=== PATIENT | male | born 1955 | race African-American/Black ===

== ENCOUNTER → 2017-02-06 | Day surgery (SDC) | payer OTHER ==
[~2017-02-06] MED LIST: DIPRIVAN VIAL 20 ML ONE; NS 1000 ML 1,000 ML ONE
[2017-02-06 09:44] VITALS: BP 138/93
== END ==
LOC: SURG1 06:38
PROVIDERS: ATTEND Student in an Organized Health Care Education/Training Program
PROC: 0DJD8ZZ Inspection of Lower Intestinal Tract, Via Natural or Artificial Opening Endoscopic (ICD-10-PCS; principal; 2017-02-06 09:30)
DX: Z12.11 Encounter for screening for malignant neoplasm of colon (principal); Q27.33 Arteriovenous malformation of digestive system vessel; K64.8 Other hemorrhoids
CPT/HCPCS: A4217; J3490

== ENCOUNTER 2021-11-24 11:48 | Inpatient (IN) ==
--- NOTE | 2021-11-24 11:58 | DR.AMS ---
HPI Time Seen Time Seen by Provider: 11/24/21 11:57 HPI Comment HPI Comment: PATIENT IS 66YR OLD MALE IN ER WITH AMS. EMS CALLED TO HIS HOME FOR FLU LIKE SYMPTOMS. UPON ARRIVEL, HE WAS FOUNG TO HAVE AMS, FVER AND ELEVATED GLUCOSE. Complaint Cheif Complaint Doctors Comments: AMS. Reviewed Nurses Notes Reviewed: Yes PMH PMH Past Medical History: Diabetes and Hypertension Past Surgical History: Yes Surgical History: Ortho Surgery Family History Family Medical History: Diabetes Mellitus, [place], Coronary Artery Disease and Hypertension Social History Do you use any recreational Drugs:: No ROS Review of Systems Constitutional: No Symptoms Reported and See HPI Eyes: No Symptoms Reported and See HPI ENTM: No Symptoms Reported and See HPI Respiratoy: No Symptoms Reported and See HPI Cardiovascular: No Symptoms Reported and See HPI Gastrointestinal/Abdominal: No Symptoms Reported and See HPI Genitourinary: No Symptoms Reported and See HPI Neurological: No Symptoms Reported and See HPI Musculoskeletal: No Symptoms Reported and See HPI Integumentary: No Symptoms Reported and See HPI Hematologic/Lymphatic: No Symptoms Reported and See HPI Endocrine: No Symptoms Reported and See HPI Psychiatric: No Symptoms Reported and See HPI All Other Systems: Reviewed and Negative PE Vitals Vital Signs: Temp Pulse Resp BP BP Pulse Ox 11/24/21 13:30 128 H 29 H 154/92 94 L 11/24/21 13:15 129 H 29 H 93 L 11/24/21 13:05 128 H 27 H 142/96 94 L 11/24/21 13:00 128 H 28 H 94 L 11/24/21 12:45 133 H 30 H 93 L 11/24/21 12:30 130 H 28 H 167/85 94 L 11/24/21 12:19 123 H 94 L 11/24/21 12:01 129 H 29 H 93 L 11/24/21 12:00 163/91 11/24/21 11:49 99.7 F H 130 H 20 164/91 92 L 11/13/21 11:37 135/82 01/23/21 03:30 149/86 General Limitations: Language Barrier General Appearance: Alert Head Head Exam: Normal Inspection Eyes Eye exam: Normal Appearance ENT ENT Exam: Normal Exam External Ear Exam: Normal External Inspection Nose Exam: Normal Nose Exam Mouth Exam: Normal Inspection Throat Exam: Normal Inspection Neck Neck Exam: Normal Inspection Chest Chest Inspection: Normal Inspection Respiratory Respiratory Exam: Normal Lung Sounds Bilat Cardiovascular Cardiovascular Exam: Regular Rate and Normal Rhythm Abdominal Exam Abdominal Exam: Normal Inspection, Normal Bowel Sounds and Soft Extremities Extremities Exam: Normal Inspection Back Back Exam: Normal Inspection Neurological Neurological Exam: Alert and Oriented X3 Psychological Psychiatric Exam: Normal Affect and Normal Mood Skin Skin Exam: Warm, Dry, Intact and Normal Color MDM Differential Diagnosis Metabolic: Dehydration, Hypercalcemia, Hypernatremia, Hypoglycemia and Hyponatremia Structural: CVA and Mass Lesion Infectious: Sepsis and UTI (PNEUMONIA, DKA.) COURSE Treatment Treatment: SEE ORDERS. Consultation Consultation Comments: DISCUSSED PATIENT WITH DR. COON. HE WILL ADMIT PATIENT. Education/Counseling Education/Counseling: Patient and Family Educated On: Diagnosis ROR Labs Reviewed Laboratory Results Reviewed?: Yes Result Diagrams: 11/24/21 12:36 11/24/21 12:36 Laboratory: WBC 1.6 X10^3/uL (3.6-10.0) L* 11/24/21 12:36 RBC 5.80 X10^6/uL (4.7-6.0) 11/24/21 12:36 Hgb 15.8 g/dL (13.5-18.0) 11/24/21 12:36 Hct 46.7 % (42.0-54.0) 11/24/21 12:36 MCV 80.6 fL (80.0-100.0) 11/24/21 12:36 MCH 27.2 pg (27.0-34.0) 11/24/21 12:36 MCHC 33.8 g/dL (33.0-35.0) 11/24/21 12:36 RDW 14.2 % (11.6-16.5) 11/24/21 12:36 Plt Count 111 X10^3/uL (150.0-450.0) L 11/24/21 12:36 Plt Count Comment Decreased (ADEQUATE) 11/24/21 12:36 MPV 9.3 fL (7.4-11.0) 11/24/21 12:36 Neut % (Auto) 79.0 % (42.0-75.0) H 11/24/21 12:36 Lymph % (Auto) 17.5 % (21.0-51.0) L 11/24/21 12:36 [place] % (Auto) 3.2 % (0.0-13.0) 11/24/21 12:36 Eos % (Auto) 0.1 % (0.9-2.9) L 11/24/21 12:36 Baso % (Auto) 0.2 % (0.2-1.0) 11/24/21 12:36 Neut # (Auto) 1.3 x10^3/uL (2.2-4.8) L 11/24/21 12:36 Lymph # (Auto) 0.3 X10^3/uL (1.3-2.9) L 11/24/21 12:36 [place] # (Auto) 0.1 x10^3/uL (0.3-0.8) L 11/24/21 12:36 Eos # (Auto) 0.0 x10^3/uL (0.0-0.2) 11/24/21 12:36 Baso # (Auto) 0.0 X10^3/uL (0.0-0.1) 11/24/21 12:36 Absolute Nucleated RBC 0.3 /100WBC 11/24/21 12:36 Total Counted 50 11/24/21 12:36 Neutrophils % (Manual) 66 % (39-76) 11/24/21 12:36 Lymphocytes % (Manual) 26 % (13-43) 11/24/21 12:36 Monocytes % (Manual) 8 % (4-9) 11/24/21 12:36 Plt Morphology Comment Normal (NORMAL) 11/24/21 12:36 RBC Morphology Normal (NORMAL) 11/24/21 12:36 Sodium 138 mmol/L (136-145) 11/24/21 12:36 Corrected Sodium 145 mmol/L (136-145) 11/24/21 12:36 Potassium 3.9 mmol/L (3.5-5.1) 11/24/21 12:36 Chloride 99 mmol/L (98-107) 11/24/21 12:36 Carbon Dioxide 21.9 mmol/L (21-32) 11/24/21 12:36 BUN 20 mg/dL (7-18) H 11/24/21 12:36 Creatinine 1.75 mg/dL (0.70-1.30) H 11/24/21 12:36 Est GFR (MDRD) Af Amer 50 (>60) L 11/24/21 12:36 Est GFR (MDRD) Non-Af 42 (>60) L 11/24/21 12:36 Glucose 378 mg/dL (65-99) H 11/24/21 12:36 Lactic Acid 5.3 mmol/L (0.4-2.0) H 11/24/21 12:36 Calcium 9.5 mg/dL (8.5-10.1) 11/24/21 12:36 Corrected Calcium 10.8 mg/dL (8.5-10.1) H 11/24/21 12:36 Total Bilirubin 1.40 mg/dL (0.2-1.0) H 11/24/21 12:36 AST 24 Units/L (15-37) 11/24/21 12:36 ALT 18 Units/L (12-78) 11/24/21 12:36 Alkaline Phosphatase 51 Units/L (46-116) 11/24/21 12:36 Creatine Kinase 121 Units/L (39-308) 11/24/21 12:36 CK-MB (CK-2) < 1.0 ng/mL (0-4.0) 11/24/21 12:36 CK/CKMB % Calc 0.8 % (<4) 11/24/21 12:36 Troponin I < 0.02 ng/mL (0-1.5) 11/24/21 12:36 B-Natriuretic Peptide 118 pg/mL (0-79) H 11/24/21 12:36 Total Protein 7.4 g/dL (6.4-8.2) 11/24/21 12:36 Albumin 2.4 g/dL (3.4-5.0) L 11/24/21 12:36 Globulin 5.0 g/dL (2.5-4.5) H 11/24/21 12:36 Albumin/Globulin Ratio 0.5 Ratio (1.1-2.1) L 11/24/21 12:36 Acetone, Semi-Quant Negative (NEGATIVE) 11/24/21 12:36 SARS-CoV-2 (PCR) Negative (NEGATIVE) 11/24/21 12:45 Influenza Type A (PCR) Positive (NEGATIVE) A 11/24/21 12:45 Influenza Type B (PCR) Negative (NEGATIVE) 11/24/21 12:45 RSV (PCR) Negative (NEGATIVE) 11/24/21 12:45 XRAY XRAY Interpreted by: Radiologist (REPORTS NOTED AND DISCUSSED WITH PATIENT.) and Self EKG [place]: Normal Rhythm: ST Block: RBBB Hypertrophy: None ST: Nonsp Opioid Opioid Risk Tool Age (Cristhian box if 16-45): No History of Preadolescent Sexual Abuse: No Total: 0 Total Score Risk Category: Low Risk Copyright: Jonathan MCCARTNEY predicting aberrant behaviors Diagnosis Discharge Problem: Acute dehydration, Acute hyperglycemia, Acidosis, lactic Pneumonia Qualifiers: Pneumonia type: due to unspecified organism Laterality: bilateral Lung location: lower lobe of lung Qualified Code(s): J18.9 - Pneumonia, unspecified organism Altered mental state Qualifiers: Altered mental status type: transient alteration of awareness Qualified Code(s): R40.4 - Transient alteration of awareness Leukopenia Qualifiers: Leukopenia type: unspecified Qualified Code(s): D72.819 - Decreased white blood cell count, unspecified Instructions Forms: Precautions for COVID19 [facility] Social Distancing
[2021-11-24 12:03] VITALS: BMI 24.4
--- NOTE | 2021-11-24 12:33 | CT ---
HISTORYAMD, ELEVATED BLOOD SUGARSTUDYBRAIN W/O CONCOMPARISONNoneTECHNIQUEMultiple axial CT images of the head without contrast. Dose reduction techniques including Automated Exposure Control (AEC) and adjustment of mA and kV were utilized.FINDINGSNo visible intracranial hemorrhage or overt acute infarct. No ventriculomegaly or midline shift. Basal cisterns appear patent. Globes intact. Included paranasal sinuses and mastoid air cells appear aerated. Skull base and calvarium appear intact.IMPRESSIONNo acute intracranial finding.Electronically signed by: Ludwig Mariano (Nov 24, 2021 12:31:39)
[2021-11-24] MEDS ORDERED: NS 1,000 ML IV 1,000 ML ONE (12:37)
--- NOTE | 2021-11-24 12:51 | RAD ---
HISTORYFEVERSTUDYCHEST, 1 [id number]/24/2021FINDINGSThe cardiomediastinal silhouette is stable. Patchy bilateral airspace opacities. No pneumothorax. The bony thorax appears intact.IMPRESSIONBilateral airspace opacities concerning for pneumonia. Recommend follow-up to resolution.Electronically signed by: KATHRYN TORRES (Nov 24, 2021 12:49:28)
[2021-11-24 12:52] LABS: BASOPHILS % (AUTO) 0.2 % (0.2-1.0); EOSINOPHILS % (AUTO) 0.1 % (0.9-2.9); HEMATOCRIT 46.7 % (42.0-54.0); HEMOGLOBIN 15.8 g/dL (13.5-18.0); LYMPHOCYTES # (AUTO) 0.3 X10^3/uL (1.3-2.9); LYMPHOCYTES % (AUTO) 17.5 % (21.0-51.0); MEAN CORPUSCULAR HEMOGLOBIN 27.2 pg (27.0-34.0); MEAN CORPUSCULAR HGB CONC 33.8 g/dL (33.0-35.0); MEAN CORPUSCULAR VOLUME 80.6 fL (80.0-100.0); MEAN PLATELET VOLUME 9.3 fL (7.4-11.0); MONOCYTES # (AUTO) 0.1 x10^3/uL (0.3-0.8); MONOCYTES % (AUTO) 3.2 % (0.0-13.0); NEUTROPHILS # (AUTO) 1.3 x10^3/uL (2.2-4.8); PLATELET COUNT 111 X10^3/uL (150.0-450.0); RED CELL DISTRIBUTION WIDTH 14.2 % (11.6-16.5)
[2021-11-24] MEDS: NS 1,000 ML IV 1,000 ML IV SCH ×2 (12:52→21:22)
[2021-11-24 12:57] LABS: WHITE BLOOD COUNT 1.6 X10^3/uL (3.6-10.0)
[2021-11-24 12:59] LABS: SERUM ACETONE NEGATIVE (NEGATIVE)
[2021-11-24 13:08] LABS: ALANINE AMINOTRANSFERASE 18 Units/L (12-78); ALBUMIN 2.4 g/dL (3.4-5.0); ALKALINE PHOSPHATASE 51 Units/L (46-116); ASPARTATE AMINO TRANSFERASE 24 Units/L (15-37); BLOOD UREA NITROGEN 20 mg/dL (7-18); CALCIUM 9.5 mg/dL (8.5-10.1); CARBON DIOXIDE 21.9 mmol/L (21-32); CHLORIDE 99 mmol/L (98-107); CKMB % 0.8 % (<4); COR CA(FOR HYPOALB) 10.8 mg/dL (8.5-10.1); COR NA(FOR HYPERGLY) 145 mmol/L (136-145); CREATINE KINASE 121 Units/L (39-308); CREATINE KINASE MB < 1.0 ng/mL (0-4.0); CREATININE 1.75 mg/dL (0.70-1.30); SODIUM 138 mmol/L (136-145); TOTAL PROTEIN 7.4 g/dL (6.4-8.2); TROPONIN I < 0.02 ng/mL (0-1.5); eGFR NON BLACK RACES 42 (>60)
[2021-11-24 13:09] LABS: LACTIC ACID 5.3 mmol/L (0.4-2.0)
[2021-11-24 13:21] LABS: PLATELET MORPHOLOGY COMMENT NORMAL (NORMAL)
[2021-11-24] MEDS ORDERED: NS 100 ML IV + SPIKE MINIBAG* 200 ML IV ONE (13:25)
[2021-11-24] MEDS ORDERED: FORTAZ or TAZICEF VIAL INJ ONE (13:25)
[2021-11-24] MEDS ORDERED: ZOSYN VIAL 3.375 GRAMS IV ONE (13:25)
[2021-11-24] MEDS: FORTAZ or TAZICEF VIAL INJ 1 G in NS 100 ML IV + SPIKE MINIBAG* 100 ML IV SCH ×2 (13:40→14:27)
[2021-11-24 13:58] LABS: BILIRUBIN,URINE NEGATIVE (NEGATIVE); BLOOD/HEMOGLOBIN,URINE 4+ (NEGATIVE); GLUCOSE, URINE 4+ (NEGATIVE); KETONES,URINE 3+ (NEGATIVE); LEUKOCYTE ESTERASE ,URINE NEGATIVE (NEGATIVE); NITRITES,URINE NEGATIVE (NEGATIVE); PROTEIN,URINE 3+ (NEGATIVE); UROBILINOGEN,URINE NORMAL (NORMAL)
[2021-11-24 14:02] LABS: APPEARANCE,URINE SLIGHTLY HAZY (CLEAR); COLOR,URINE DARK YELLOW (YELLOW)
[2021-11-24] MEDS ORDERED: NovoLIN R (or HumuLIN R) ONE (14:13)
[2021-11-24] MEDS ORDERED: NovoLIN R (or HumuLIN R) SUBCUT PRN (14:22)
[2021-11-24 14:23] LABS: AMORPHOUS SEDIMENT,UR 1+ /HPF (NEGATIVE); BACTERIA,URINE TRACE /HPF (NEGATIVE); COARSE GRANULAR CASTS,URINE MODERATE /HPF (NEGATIVE); SQUAMOUS EPITHELIAL CELL,UR FEW /HPF (NEGATIVE)
[2021-11-24 14:24] LABS: OTHER CASTS, URINE FEW /LPF (NEGATIVE)
[2021-11-24] MEDS: ZOSYN VIAL 3.375 GRAMS 3.375 G in NS 100 ML IV + SPIKE MINIBAG* 100 ML IV SCH ×2 (14:28→21:47)
[2021-11-24] MEDS: ASCORBIC ACID INJ MULTI-DOSE VIAL 1,500 MG in NS 100 ML IV 100 ML IV SCH ×2 (15:00→21:22)
[2021-11-24] MEDS ORDERED: TOPROL XL PO ONE (17:59)
[2021-11-24] MEDS: TOPROL XL PO SCH (18:22)
[2021-11-24 18:55] LABS: CKMB % 0.8 % (<4); CREATINE KINASE 125 Units/L (39-308); CREATINE KINASE MB < 1.0 ng/mL (0-4.0); TROPONIN I < 0.02 ng/mL (0-1.5)
[2021-11-24] MEDS ORDERED: SNACK - Diabetic Appropriate PO SCH (20:00)
[2021-11-24] MEDS: LOVENOX INJ 30 MG SYR SC SCH (21:00)
[2021-11-24] MEDS: PROVENTIL NEB TX 0.083% 2.5MG/ 3ML NEB SCH (21:25)
[2021-11-24] MEDS: PULMICORT NEB TX 0.5 MG NEB SCH (21:25)
[2021-11-24] MEDS: SNACK - Diabetic Appropriate PO SCH (21:45)
[2021-11-24] MEDS: PEPCID TAB 40 MG PO SCH (21:48)
[2021-11-24] MEDS: ZINC SULFATE PO SCH (21:48)
[2021-11-24] MEDS: NovoLIN R (or HumuLIN R) SUBCUT PRN ×2 (22:15→22:25)
[2021-11-25 01:12] LABS: CREATINE KINASE 101 Units/L (39-308); CREATINE KINASE MB < 1.0 ng/mL (0-4.0); TROPONIN I < 0.02 ng/mL (0-1.5)
[2021-11-25] MEDS: ASCORBIC ACID INJ MULTI-DOSE VIAL 1,500 MG in NS 100 ML IV 100 ML IV SCH ×4 (02:54→21:37)
[2021-11-25] MEDS: NS 1,000 ML IV 1,000 ML IV SCH ×4 (03:40→21:39)
[2021-11-25 05:12] LABS: BASOPHILS % (AUTO) 0.1 % (0.2-1.0); EOSINOPHILS % (AUTO) 0.1 % (0.9-2.9); HEMATOCRIT 39.5 % (42.0-54.0); HEMOGLOBIN 13.5 g/dL (13.5-18.0); LYMPHOCYTES # (AUTO) 0.5 X10^3/uL (1.3-2.9); LYMPHOCYTES % (AUTO) 12.4 % (21.0-51.0); MEAN CORPUSCULAR HEMOGLOBIN 27.1 pg (27.0-34.0); MEAN CORPUSCULAR HGB CONC 34.2 g/dL (33.0-35.0); MEAN CORPUSCULAR VOLUME 79.1 fL (80.0-100.0); MEAN PLATELET VOLUME 9.5 fL (7.4-11.0); MONOCYTES # (AUTO) 0.1 x10^3/uL (0.3-0.8); MONOCYTES % (AUTO) 2.6 % (0.0-13.0); NEUTROPHILS # (AUTO) 3.4 x10^3/uL (2.2-4.8); NEUTROPHILS % (AUTO) 84.8 % (42.0-75.0); PLATELET COUNT 106 X10^3/uL (150.0-450.0); RED CELL DISTRIBUTION WIDTH 13.8 % (11.6-16.5)
[2021-11-25 05:21] LABS: LACTIC ACID 1.4 mmol/L (0.4-2.0)
[2021-11-25] MEDS: ZOSYN VIAL 3.375 GRAMS 3.375 G in NS 100 ML IV + SPIKE MINIBAG* 100 ML IV SCH ×3 (05:22→21:37)
[2021-11-25 05:33] LABS: ALANINE AMINOTRANSFERASE 18 Units/L (12-78); ALBUMIN 1.8 g/dL (3.4-5.0); ALKALINE PHOSPHATASE 46 Units/L (46-116); ASPARTATE AMINO TRANSFERASE 26 Units/L (15-37); BLOOD UREA NITROGEN 27 mg/dL (7-18); CALCIUM 8.8 mg/dL (8.5-10.1); CARBON DIOXIDE 27.6 mmol/L (21-32); CHLORIDE 105 mmol/L (98-107); COR CA(FOR HYPOALB) 10.6 mg/dL (8.5-10.1); COR NA(FOR HYPERGLY) 142 mmol/L (136-145); CREATININE 1.37 mg/dL (0.70-1.30); SODIUM 142 mmol/L (136-145); TOTAL PROTEIN 6.1 g/dL (6.4-8.2); eGFR NON BLACK RACES 55 (>60)
[2021-11-25 05:43] LABS: PLATELET MORPHOLOGY COMMENT NORMAL (NORMAL)
[2021-11-25] MEDS ORDERED: KLOR-CON PO PRN (06:56)
[2021-11-25] MEDS ORDERED: K-DUR TAB 20 MEQ PO PRN (06:56)
[2021-11-25] MEDS ORDERED: POTASSIUM CHL 40 MEQ/NS 0.45% 500 ML IV PRN (06:56)
[2021-11-25] MEDS ORDERED: POTASSIUM CHL 60 MEQ/NS 0.45% 500 ML IV PRN (06:56)
[2021-11-25] MEDS ORDERED: K-RIDER 10 MEQ/NS 100 ML 10 MEQ/100 ML BAG IV PRN (06:56)
[2021-11-25] MEDS ORDERED: MICRO K EXTEN CAP 10 MEQ PO PRN (06:56)
[2021-11-25] MEDS ORDERED: POTASSIUM CHLORIDE LIQ 20 MEQ UDC PO PRN (06:56)
[2021-11-25] MEDS ORDERED: MAGNESIUM SULFATE 1 GRAM/100 mL PREMIX 1 G/100 ML BAG IV PRN (06:56)
--- NOTE | 2021-11-25 07:59 | RAD ---
HISTORYFLU A+ HTN, DM SX: ORTHO, EYESSTUDYCHEST, 1 VIEWCOMPARISONAP chest November 24, 2021.FINDINGSThe trachea is midline. The cardiac silhouette is unremarkable. There are bilateral right greater than left pulmonary infiltrates unchanged from yesterday's film. Small effusion is seen in the left lung base. The bony thorax is unremarkable.IMPRESSIONBilateral right greater than left airspace disease consistent with pneumonia with probable small effusion left lung base. Findings are unchanged from yesterday's exam.Electronically signed by: SOURAV PERALTA (Nov 25, 2021 07:58:28)
[2021-11-25] MEDS ORDERED: PROVENTIL NEB TX 0.083% 2.5MG/ 3ML NEB PRN (08:13)
[2021-11-25] MEDS: TRICOR TAB 160 MG PO SCH (08:44)
[2021-11-25] MEDS: TOPROL XL PO SCH (08:44)
[2021-11-25] MEDS: ZINC SULFATE PO SCH ×2 (08:45→21:38)
[2021-11-25] MEDS ORDERED: VITAMIN D (1.25MG) PO SCH (09:00)
[2021-11-25] MEDS ORDERED: VITAMIN A PO SCH (09:00)
[2021-11-25] MEDS: PROVENTIL NEB TX 0.083% 2.5MG/ 3ML NEB SCH ×2 (09:05→20:30)
[2021-11-25] MEDS: PULMICORT NEB TX 0.5 MG NEB SCH ×2 (09:05→20:30)
[2021-11-25] MEDS: LOVENOX INJ 30 MG SYR SC SCH ×2 (09:35→21:39)
--- NOTE | 2021-11-25 09:56 | DR.H&P ---
H&P - History & Physical for Day of: H&P Date: 11/24/21 - Chief Complaint Chief Complaint: COUGH, FEVER, DECREASED APPETITE, WEAKNESS, AMS - History of Present Illness History of Present Illness: IS A 66 YEAR OLD PATIENT OF . HE PRESENTED TO THE ER WITH REPORTS OF A NON-PRODUCTIVE COUGH, FEVER, DECREASED APPETITE, WEAKNESS, AND ALTERED MENTAL STATUS. FAMILY MEMBER REPORTS THAT HIS SYMPTOMS STARTED ON 11/21/21 AND HAVE PROGRESSIVELY GOTTEN WORSE. ON EXAMINATION, PATIENT IS LETHARGIC, BUT IS ABLE TO ANSWER QUESTIONS APPROPRIATELY AND MOVES ON COMMAND. AUSCULTATION OF LUNG HARDIN, PATIENT WAS NOTED TO HAVE RHONCHI THROUGHOUT BILATERAL LUNG HARDIN. HIS PMH INCLUDES: CAD, HTN, GERD, CHRONIC BACK PAIN, DM II. ON ARRIVAL TO THE ER, HIS VITALS WERE: 99.7-130-20-92%-164/91. LABS WERE OBTAINED. ABNORMAL LAB VALUES INCLUDED THE FOLLOWING: WBC 1.6, PLT COUNT 111, BUN 20, CREATININE 1.75, GLUCOSE 378, LACTIC ACID 5.3, TOTAL BILI 1.40, BNP 118, CORRECTED CALCIUM 10.8, ALBUMIN 2.4, GLOBULIN 5.0. CARDIAC ENZYMES WERE WITHIN NORMAL LIMITS. INFLUENZA A POSITIVE. COVID AND RSV ARE NEGATIVE. ACETONES NEGATIVE. A URINALYSIS WAS OBTAINED AND REVEALED: WBC 0-2, RBC 5-10, LEUKOCYTES NEGATIVE, BACTERIA TRACE. BLOOD CULTURES WERE SET UP. A BRAIN CT WAS OBTAINED AND REVEALED NO ACUTE INTRACRANIAL FINDINGS. CHEST XRAY REVEALED: Bilateral airspace opacities concerning for pneumonia. Recommend follow-up to resolution. EKG REVEALED: SINUS OR ECTOPIC ATRIAL TACHYCARDIA WITH HR 129. IN THE ER, HE WAS GIVEN HUMULIN R 8 UNITS SC X 1 DOSE. HE WAS ADMITTED TO THE HOSPITAL FOR FURTHER EVALUATION AND TREATMENT OF PNEUMONIA, INFLUENZA A, DEHYDRATION, HYPERGLYCEMIA, LEUKOPENIA, AND AMS. HE WAS STARTED ON NORMAL SALINE AT 125ML/HR, LEVAQUIN 500MG IV DAILY, ZOSYN 3.375G IV TID, ALBUTEROL NEB TX, PULMICORT NEB TX, LOVENOX 30MG SC BID, SOLU-MEDROL 40MG IV Q8H, TAMIFLU 75MG PO BID, PEPCID 40MG PO HS, TRICOR 160MG PO DAILY, MEGACE 40MG PO BID, TOPROL XL 50MG PO DAILY, AND IMMUNE SUPPLEMENTS. OTHERWISE, WE PLAN TO FOLLOW UP WITH AM LABS AND CHEST XRAY AND CONTINUE TO MONITOR. TIME SPENT ON CLINICAL ASSESSMENT, REVIEWING LABS AND IMAGING, DECISION MAKING, AND DOCUMENTATION GREATER THAN 75 MINUTES. - Past Medical History Past Medical History: Coronary Artery Disease, Diabetes, GERD, Hypertension - Past Surgical History Surgical History: Ortho Surgery - Family History Family Medical History: Diabetes Mellitus, Hypertension - Social History Does patient currently use any type of tobacco product: No Have you used tobacco products in the last 12 months: No Type of Tobacco Use: None Does any household member use tobacco: No Alcohol Use: None Drug Use: None - Medications Home Medications: codeine Adverse Reaction (Verified 11/13/21 08:47) irregular heart rate CONTINUE taking the following medications hydrocodone-acetaminophen 1 tab PO TID PRN 11/24/21 [History] lisinopril 10 mg PO DAILY 11/24/21 [History] metoprolol succinate 100 mg PO DAILY 11/24/21 [History] pioglitazone 45 mg PO DAILY 11/24/21 [History] - Review of Systems Constitutional: Fever, Weakness Eyes: No Symptoms Reported ENT: No Symptoms Reported Respiratory: See HPI, Cough, Shortness of Breath Cardiovascular: No Symptoms Reported Gastrointestinal: No Symptoms Reported Genitourinary: No Symptoms Reported Musculoskeletal: No Symptoms Reported Skin: No Symptoms Reported Neurological: Weakness - Physical Exam Vital Signs: Temperature 98.3 F Pulse Rate [Left Radial] 80 Pulse Rate 76 Respiratory Rate 20 Blood Pressure [Right Arm] 129/76 Blood Pressure 143/83 O2 Sat by Pulse Oximetry 96 Oriented: Normal Eyes: Normal Ear: Normal Nose: Normal Throat: Normal Respiratory: Rhonchi Throughout Cardiovascular: Tachycardia : Normal Auscultation: Bowel Sounds: Normal Palpation: Normal Tenderness: Normal Skin: Decreased Turgur Musculoskeletal: Back:Lumbar, Tender Psychiatric: Normal Mood Description: Calm Affect: Normal Speech Pattern: Clear - Assessment/Plan (1) Pneumonia Qualifiers: Pneumonia type: due to unspecified organism Laterality: bilateral Lung location: unspecified part of lung Qualified Code(s): J18.9 - Pneumonia, unspecified organism Status: Acute Plan: ADMIT, SUPPLEMENTAL OXYGEN, NORMAL SALINE AT 125ML/HR, LEVAQUIN 500MG IV DAILY, ZOSYN 3.375G IV TID, ALBUTEROL NEB TX, PULMICORT NEB TX, LOVENOX 30MG SC BID, SOLU-MEDROL 40MG IV Q8H, TAMIFLU 75MG PO BID, PEPCID 40MG PO HS, TRICOR 160MG PO DAILY, MEGACE 40MG PO BID, TOPROL XL 50MG PO DAILY, AND IMMUNE SUPPLEMENTS. (2) Influenza A Status: Acute (3) Acute dehydration Status: Acute (4) Altered mental state Qualifiers: Altered mental status type: transient alteration of awareness Qualified Code(s): R40.4 - Transient alteration of awareness Status: Acute (5) Acute hyperglycemia Status: Acute (6) Leukopenia Qualifiers: Leukopenia type: unspecified Qualified Code(s): D72.819 - Decreased white blood cell count, unspecified Status: Acute - Allergies Allergies/Adverse Reactions: Allergies Allergy/AdvReac Type Severity Reaction Status Date / Time codeine AdvReac irregular Verified 11/13/21 08:47 heart rate
[2021-11-25] MEDS: LEVAQUIN PREMIX IV 500 MG 500 MG/100 ML BAG IV SCH (11:00)
[2021-11-25] MEDS: SOLU-Medrol 40 MG VIAL IVP SCH ×3 (11:00→21:38)
[2021-11-25] MEDS: TAMIFLU PO SCH ×2 (11:00→21:38)
[2021-11-25] MEDS: MEGACE PO SCH ×2 (11:00→21:39)
[2021-11-25] MEDS: NovoLIN R (or HumuLIN R) SUBCUT PRN ×2 (14:05→21:40)
[2021-11-25] MEDS: SNACK - Diabetic Appropriate PO SCH (21:20)
[2021-11-25] MEDS: PEPCID TAB 40 MG PO SCH (21:38)
[2021-11-26] MEDS: NovoLIN R (or HumuLIN R) SUBCUT PRN ×4 (00:33→22:03)
[2021-11-26] MEDS: ASCORBIC ACID INJ MULTI-DOSE VIAL 1,500 MG in NS 100 ML IV 100 ML IV SCH ×4 (02:47→22:01)
[2021-11-26 05:19] LABS: BASOPHILS % (AUTO) 0.2 % (0.2-1.0); HEMATOCRIT 36.3 % (42.0-54.0); HEMOGLOBIN 12.2 g/dL (13.5-18.0); LYMPHOCYTES # (AUTO) 0.6 X10^3/uL (1.3-2.9); MEAN CORPUSCULAR HEMOGLOBIN 26.7 pg (27.0-34.0); MEAN CORPUSCULAR HGB CONC 33.6 g/dL (33.0-35.0); MEAN CORPUSCULAR VOLUME 79.4 fL (80.0-100.0); MEAN PLATELET VOLUME 9.2 fL (7.4-11.0); MONOCYTES # (AUTO) 0.2 x10^3/uL (0.3-0.8); MONOCYTES % (AUTO) 3.8 % (0.0-13.0); NEUTROPHILS # (AUTO) 4.5 x10^3/uL (2.2-4.8); PLATELET COUNT 110 X10^3/uL (150.0-450.0); RED BLOOD COUNT 4.58 X10^6/uL (4.7-6.0); RED CELL DISTRIBUTION WIDTH 14.2 % (11.6-16.5); WHITE BLOOD COUNT 5.3 X10^3/uL (3.6-10.0)
[2021-11-26] MEDS: NS 1,000 ML IV 1,000 ML IV SCH ×3 (05:24→22:02)
[2021-11-26] MEDS: SOLU-Medrol 40 MG VIAL IVP SCH ×3 (05:25→22:02)
[2021-11-26] MEDS: ZOSYN VIAL 3.375 GRAMS 3.375 G in NS 100 ML IV + SPIKE MINIBAG* 100 ML IV SCH ×3 (05:25→22:02)
[2021-11-26 05:45] LABS: ALANINE AMINOTRANSFERASE 21 Units/L (12-78); ALBUMIN 1.6 g/dL (3.4-5.0); ALKALINE PHOSPHATASE 58 Units/L (46-116); ASPARTATE AMINO TRANSFERASE 24 Units/L (15-37); BLOOD UREA NITROGEN 26 mg/dL (7-18); CARBON DIOXIDE 23.3 mmol/L (21-32); CHLORIDE 102 mmol/L (98-107); COR CA(FOR HYPOALB) 10.9 mg/dL (8.5-10.1); COR NA(FOR HYPERGLY) 140 mmol/L (136-145); CREATININE 1.28 mg/dL (0.70-1.30); SODIUM 134 mmol/L (136-145); eGFR NON BLACK RACES 60 (>60)
[2021-11-26 06:00] LABS: PLATELET MORPHOLOGY COMMENT NORMAL (NORMAL)
--- NOTE | 2021-11-26 07:51 | RAD ---
HISTORYSOB hypertensionSTUDYAP [id number]/27/2021FINDINGSSimilar and stable normal heart size. No change in extent or distribution of bilateral airspace disease. There is no evidence for large pleural effusion or complicating pneumothorax.IMPRESSIONNo change in appearance of the bilateral pulmonary infiltrates consistent with multilobar pneumonia.Electronically signed by: NOY MELGAR (Nov 26, 2021 07:49:31)
[2021-11-26] MEDS ORDERED: VITAMIN A PO SCH (09:00)
[2021-11-26] MEDS: PROVENTIL NEB TX 0.083% 2.5MG/ 3ML NEB SCH ×2 (09:05→20:06)
[2021-11-26] MEDS: PULMICORT NEB TX 0.5 MG NEB SCH ×2 (09:05→20:06)
[2021-11-26] MEDS: LEVAQUIN PREMIX IV 500 MG 500 MG/100 ML BAG IV SCH (09:58)
[2021-11-26] MEDS: TAMIFLU PO SCH ×2 (09:59→22:03)
[2021-11-26] MEDS: TOPROL XL PO SCH (09:59)
[2021-11-26] MEDS: MEGACE PO SCH ×2 (09:59→22:02)
[2021-11-26] MEDS: TRICOR TAB 160 MG PO SCH (09:59)
[2021-11-26] MEDS: ZINC SULFATE PO SCH ×2 (10:00→22:03)
[2021-11-26] MEDS: LOVENOX INJ 30 MG SYR SC SCH ×2 (10:00→22:01)
[2021-11-26] MEDS: VITAMIN D3 125 mcg (5,000 UNITS) PO SCH (10:00)
--- NOTE | 2021-11-26 16:17 | PCM.PROG ---
Progress Note - Progress Note for Day of Date of Exam: 11/26/21 - Subjective Subjective: WAS ADMITTED FOR TREATMENT OF MULTIFOCAL PNEUMONIA, INFLUENZA A, DEHYDRATION, AND AMS. TODAY, HE IS ALERT AND ORIENTED, LYING IN BED ON MORNING ROUNDS. HE REPORTS SHORTNESS OF BREATH, COUGH, AND GENERALIZED WEAKNESS THIS MORNING. HE DOES ADMIT TO SLIGHT IMPROVEMENT IN SYMPTOMS SINCE ADMISSION. ON EXAMINATION, HEART IS REGULAR IN RATE AND RHYTHM. BILATERAL LUNGS ARE NOTED WITH DIMINISHED LUNG SOUNDS THROUGHOUT. ABDOMEN IS ROUND, SOFT, AND NON-TENDER WITH NORMAL BOWEL SOUNDS NOTED IN ALL QUADRANTS. HIS VITALS THIS MORNING ARE: 97.5-96-20-97%-134/84. LABS WERE OBTAINED. ABNORMAL LAB VALUES INCLUDE THE FOLLOWING: RBC 4.58, HGB 12.2, HCT 36.3, PLT COUNT 110, SODIUM 134, BUN 26, GLUCOSE 332, TOTAL PROTEIN 6.0, ALBUMIN 1.6. BLOOD CULTURES ARE PENDING. CHEST XRAY WAS OBTAINED AND REVEALED: No change in appearance of the bilateral pulmonary infiltrates consistent with multilobar pneumonia. HE IS CURRENTLY RECEIVING: NORMAL SALINE AT 125ML/HR, LEVAQUIN 500MG IV DAILY, ZOSYN 3.375G IV TID, ALBUTEROL NEB TX, PULMICORT NEB TX, LOVENOX 30MG SC BID, SOLU-MEDROL 40MG IV Q8H, TAMIFLU 75MG PO BID, PEPCID 40MG PO HS, TRICOR 160MG PO DAILY, MEGACE 40MG PO BID, TOPROL XL 50MG PO DAILY, AND IMMUNE SUPPLEMENTS. WE WILL CONTINUE WITH CURRENT PLAN OF CARE TODAY. OTHERWISE, WE WILL FOLLOW UP WITH AM LABS AND CHEST XRAY AND CONTINUE TO MONITOR. TIME SPENT ON CLINICAL ASSESSMENT, REVIEWING LABS AND IMAGING, DECISION MAKING, AND DOCUMENTATION GREATER THAN 45 MINUTES. - Past Medical Family Social History Past Med/Fam/Surg Hx: No changes since H&P Allergies: Allergies codeine Adverse Reaction (Verified 11/13/21 08:47) irregular heart rate - Review of Systems ROS: No change since H&P - Vital Signs and I&O's Vital Signs: Temperature 98.6 F Pulse Rate [Left Radial] 96 Pulse Rate 82 Respiratory Rate 20 Blood Pressure [Right Arm] 139/75 Blood Pressure 143/83 O2 Sat by Pulse Oximetry 96 Intake and Output: Intake & Output 11/24/21 11/25/21 11/26/21 11/27/21 11:59 11:59 11:59 11:59 Intake Total 843 / 843 4281 / 4281 Output Total 1100 / 1100 2300 / 2300 Balance -257 / -257 1980 - Physical Exam Oriented: Normal Eyes: Normal Ear: Normal Nose: Normal Throat: Normal Respiratory: Diminished Cardiovascular: Normal : Normal Auscultation: Bowel Sounds: Normal Palpation: Normal Tenderness: Normal Skin: Decreased Turgur Musculoskeletal: Back:Lumbar, Tender Psychiatric: Normal Mood Description: Calm Affect: Normal Speech Pattern: Clear, Appropriate - Laboratory and Diagnostics Result Diagrams: 11/26/21 04:50 11/26/21 12:02 Labs: 11/24/21 12:36 Blood Blood Culture - Preliminary 11/24/21 12:29 Blood Blood Culture - Preliminary Laboratory WBC 5.3 X10^3/uL (3.6-10.0) 11/26/21 04:50 RBC 4.58 X10^6/uL (4.7-6.0) L 11/26/21 04:50 Hgb 12.2 g/dL (13.5-18.0) L 11/26/21 04:50 Hct 36.3 % (42.0-54.0) L 11/26/21 04:50 MCV 79.4 fL (80.0-100.0) L 11/26/21 04:50 MCH 26.7 pg (27.0-34.0) L 11/26/21 04:50 MCHC 33.6 g/dL (33.0-35.0) 11/26/21 04:50 RDW 14.2 % (11.6-16.5) 11/26/21 04:50 Plt Count 110 X10^3/uL (150.0-450.0) L 11/26/21 04:50 Plt Count Comment Decreased (ADEQUATE) 11/26/21 04:50 MPV 9.2 fL (7.4-11.0) 11/26/21 04:50 Neut % (Auto) 85.0 % (42.0-75.0) H 11/26/21 04:50 Lymph % (Auto) 11.0 % (21.0-51.0) L 11/26/21 04:50 [place] % (Auto) 3.8 % (0.0-13.0) 11/26/21 04:50 Eos % (Auto) 0.0 % (0.9-2.9) L 11/26/21 04:50 Baso % (Auto) 0.2 % (0.2-1.0) 11/26/21 04:50 Neut # (Auto) 4.5 x10^3/uL (2.2-4.8) 11/26/21 04:50 Lymph # (Auto) 0.6 X10^3/uL (1.3-2.9) L 11/26/21 04:50 [place] # (Auto) 0.2 x10^3/uL (0.3-0.8) L 11/26/21 04:50 Eos # (Auto) 0.0 x10^3/uL (0.0-0.2) 11/26/21 04:50 Baso # (Auto) 0.0 X10^3/uL (0.0-0.1) 11/26/21 04:50 Absolute Nucleated RBC 0.1 /100WBC 11/26/21 04:50 Total Counted 100 11/26/21 04:50 Neutrophils % (Manual) 86 % (39-76) H 11/26/21 04:50 Lymphocytes % (Manual) 14 % (13-43) 11/26/21 04:50 Monocytes % (Manual) 4 % (4-9) 11/25/21 04:25 Plt Morphology Comment Normal (NORMAL) 11/26/21 04:50 RBC Morphology Normal (NORMAL) 11/26/21 04:50 Sodium 134 mmol/L (136-145) L 11/26/21 04:50 Corrected Sodium 140 mmol/L (136-145) 11/26/21 04:50 Potassium 3.8 mmol/L (3.5-5.1) 11/26/21 04:50 Chloride 102 mmol/L (98-107) 11/26/21 04:50 Carbon Dioxide 23.3 mmol/L (21-32) 11/26/21 04:50 BUN 26 mg/dL (7-18) H 11/26/21 04:50 Creatinine 1.28 mg/dL (0.70-1.30) 11/26/21 04:50 Est GFR (MDRD) Af Amer > 60 (>60) 11/26/21 04:50 Est GFR (MDRD) Non-Af 60 (>60) 11/26/21 04:50 Glucose 423 mg/dL (65-99) H 11/26/21 12:02 POC Glucose (mg/dL) 419 mg/dL (65-99) H 11/26/21 11:30 Lactic Acid 1.4 mmol/L (0.4-2.0) 11/25/21 04:25 Calcium 9.0 mg/dL (8.5-10.1) 11/26/21 04:50 Corrected Calcium 10.9 mg/dL (8.5-10.1) H 11/26/21 04:50 Magnesium 2.4 mg/dL (1.7-2.9) 11/25/21 04:25 Total Bilirubin 0.70 mg/dL (0.2-1.0) 11/26/21 04:50 AST 24 Units/L (15-37) 11/26/21 04:50 ALT 21 Units/L (12-78) 11/26/21 04:50 Alkaline Phosphatase 58 Units/L (46-116) 11/26/21 04:50 Creatine Kinase 101 Units/L (39-308) 11/25/21 00:26 CK-MB (CK-2) < 1.0 ng/mL (0-4.0) 11/25/21 00:26 CK/CKMB % Calc 1.0 % (<4) 11/25/21 00:26 Troponin I < 0.02 ng/mL (0-1.5) 11/25/21 00:26 B-Natriuretic Peptide 118 pg/mL (0-79) H 11/24/21 12:36 Total Protein 6.0 g/dL (6.4-8.2) L 11/26/21 04:50 Albumin 1.6 g/dL (3.4-5.0) L 11/26/21 04:50 Globulin 4.4 g/dL (2.5-4.5) 11/26/21 04:50 Albumin/Globulin Ratio 0.4 Ratio (1.1-2.1) L 11/26/21 04:50 Specimen Type Catherized urine 11/24/21 13:39 Urine Color Dark yellow (YELLOW) 11/24/21 13:39 Urine Appearance Slightly hazy (CLEAR) 11/24/21 13:39 Urine pH 5.0 (5.0 - 8.0) 11/24/21 13:39 Ur Specific [place] 1.020 (1.000-1.030) 11/24/21 13:39 Urine Protein 3+ (NEGATIVE) 11/24/21 13:39 Urine Glucose (UA) 4+ (NEGATIVE) 11/24/21 13:39 Urine Ketones 3+ (NEGATIVE) 11/24/21 13:39 Urine Occult Blood 4+ (NEGATIVE) 11/24/21 13:39 Urine Nitrite Negative (NEGATIVE) 11/24/21 13:39 Urine Bilirubin Negative (NEGATIVE) 11/24/21 13:39 Urine Urobilinogen Normal (NORMAL) 11/24/21 13:39 Ur Leukocyte Esterase Negative (NEGATIVE) 11/24/21 13:39 Urine RBC 5-10 /HPF (0-3) A 11/24/21 13:39 Urine WBC 0-2 /HPF (0-5) 11/24/21 13:39 Ur Squamous Epith Cells Few /HPF (NEGATIVE) 11/24/21 13:39 Amorphous Sediment 1+ /HPF (NEGATIVE) 11/24/21 13:39 Urine Bacteria Trace /HPF (NEGATIVE) 11/24/21 13:39 Coarse Granular Casts Moderate /HPF (NEGATIVE) 11/24/21 13:39 Other Casts Few /LPF (NEGATIVE) 11/24/21 13:39 Ur Culture Indicated? No/not indicated 11/24/21 13:39 Acetone, Semi-Quant Negative (NEGATIVE) 11/24/21 12:36 SARS-CoV-2 (PCR) Negative (NEGATIVE) 11/24/21 12:45 Influenza Type A (PCR) Positive (NEGATIVE) A 11/24/21 12:45 Influenza Type B (PCR) Negative (NEGATIVE) 11/24/21 12:45 RSV (PCR) Negative (NEGATIVE) 11/24/21 12:45 - Plan (1) Pneumonia Status: Acute Qualifiers: Pneumonia type: due to unspecified organism Laterality: bilateral Lung location: unspecified part of lung Qualified Code(s): J18.9 - Pneumonia, unspecified organism Plan: SUPPLEMENTAL OXYGEN, NORMAL SALINE AT 125ML/HR, LEVAQUIN 500MG IV DAILY, ZOSYN 3.375G IV TID, ALBUTEROL NEB TX, PULMICORT NEB TX, LOVENOX 30MG SC BID, SOLU-MEDROL 40MG IV Q8H, TAMIFLU 75MG PO BID, PEPCID 40MG PO HS, TRICOR 160MG PO DAILY, MEGACE 40MG PO BID, TOPROL XL 50MG PO DAILY, AND IMMUNE SUPPLEMENTS. (2) Influenza A Status: Acute (3) Acute dehydration Status: Acute (4) Altered mental state Status: Acute Qualifiers: Altered mental status type: transient alteration of awareness Qualified Code(s): R40.4 - Transient alteration of awareness (5) Acute hyperglycemia Status: Acute (6) Leukopenia Status: Acute Qualifiers: Leukopenia type: unspecified Qualified Code(s): D72.819 - Decreased white blood cell count, unspecified
[2021-11-26] MEDS: SNACK - Diabetic Appropriate PO SCH (22:01)
[2021-11-26] MEDS: PEPCID TAB 40 MG PO SCH (22:02)
[2021-11-27] MEDS: ASCORBIC ACID INJ MULTI-DOSE VIAL 1,500 MG in NS 100 ML IV 100 ML IV SCH ×4 (03:22→21:51)
[2021-11-27 04:55] LABS: BASOPHILS % (AUTO) 0.1 % (0.2-1.0); HEMATOCRIT 35.5 % (42.0-54.0); HEMOGLOBIN 12.1 g/dL (13.5-18.0); LYMPHOCYTES # (AUTO) 0.6 X10^3/uL (1.3-2.9); LYMPHOCYTES % (AUTO) 8.9 % (21.0-51.0); MEAN CORPUSCULAR HEMOGLOBIN 26.7 pg (27.0-34.0); MEAN CORPUSCULAR VOLUME 78.5 fL (80.0-100.0); MEAN PLATELET VOLUME 8.8 fL (7.4-11.0); MONOCYTES # (AUTO) 0.4 x10^3/uL (0.3-0.8); MONOCYTES % (AUTO) 5.2 % (0.0-13.0); NEUTROPHILS # (AUTO) 6.1 x10^3/uL (2.2-4.8); NEUTROPHILS % (AUTO) 85.8 % (42.0-75.0); PLATELET COUNT 114 X10^3/uL (150.0-450.0); RED BLOOD COUNT 4.52 X10^6/uL (4.7-6.0); RED CELL DISTRIBUTION WIDTH 14.3 % (11.6-16.5); WHITE BLOOD COUNT 7.1 X10^3/uL (3.6-10.0)
[2021-11-27 05:11] LABS: ALANINE AMINOTRANSFERASE 19 Units/L (12-78); ALBUMIN 1.6 g/dL (3.4-5.0); ALKALINE PHOSPHATASE 58 Units/L (46-116); ASPARTATE AMINO TRANSFERASE 15 Units/L (15-37); BLOOD UREA NITROGEN 26 mg/dL (7-18); CALCIUM 8.9 mg/dL (8.5-10.1); CARBON DIOXIDE 24.1 mmol/L (21-32); CHLORIDE 104 mmol/L (98-107); COR CA(FOR HYPOALB) 10.8 mg/dL (8.5-10.1); COR NA(FOR HYPERGLY) 140 mmol/L (136-145); CREATININE 1.19 mg/dL (0.70-1.30); SODIUM 135 mmol/L (136-145); TOTAL PROTEIN 5.7 g/dL (6.4-8.2); eGFR NON BLACK RACES > 60 (>60)
[2021-11-27] MEDS: NS 1,000 ML IV 1,000 ML IV SCH ×3 (05:28→21:52)
[2021-11-27] MEDS: SOLU-Medrol 40 MG VIAL IVP SCH ×3 (05:28→21:55)
[2021-11-27] MEDS: ZOSYN VIAL 3.375 GRAMS 3.375 G in NS 100 ML IV + SPIKE MINIBAG* 100 ML IV SCH ×3 (05:28→21:56)
--- NOTE | 2021-11-27 05:41 | RAD ---
PROCEDURE: Chest X-ray 1 View .HISTORY: Dyspnea and pneumonia.TECHNIQUE: AP view .COMPARISON: 11/26/2021.TECHNICAL QUALITY: Satisfactory .FINDINGS:Unremarkable cardio mediastinal silhouette with normal central vascularity.Consolidation both lung bases similar to previous study consistent with pneumonia. No pneumothorax or pleural fluid.IMPRESSION:Unchanged bilateral pneumonia.Electronically signed by: Pradeep Quinonez (Nov 27, 2021 05:39:31)
[2021-11-27] MEDS ORDERED: NORCO 7.5/325 MG TAB PO PRN (08:25)
[2021-11-27] MEDS: PROVENTIL NEB TX 0.083% 2.5MG/ 3ML NEB SCH ×2 (08:34→20:05)
[2021-11-27] MEDS: PULMICORT NEB TX 0.5 MG NEB SCH ×2 (08:35→20:05)
[2021-11-27] MEDS: LEVAQUIN PREMIX IV 500 MG 500 MG/100 ML BAG IV SCH (10:45)
[2021-11-27] MEDS: LOVENOX INJ 30 MG SYR SC SCH ×2 (10:45→21:52)
[2021-11-27] MEDS: MEGACE PO SCH ×2 (10:46→21:52)
[2021-11-27] MEDS: ACTOS PO SCH (10:46)
[2021-11-27] MEDS: TOPROL XL PO SCH (10:47)
[2021-11-27] MEDS: TAMIFLU PO SCH ×2 (10:47→21:53)
[2021-11-27] MEDS: ZINC SULFATE PO SCH ×2 (10:48→21:53)
[2021-11-27] MEDS: TRICOR TAB 160 MG PO SCH (10:48)
[2021-11-27] MEDS: VITAMIN D3 125 mcg (5,000 UNITS) PO SCH (10:48)
[2021-11-27] MEDS: NovoLIN R (or HumuLIN R) SUBCUT PRN ×4 (11:43→23:15)
--- NOTE | 2021-11-27 14:59 | PCM.PROG ---
Progress Note - Progress Note for Day of Date of Exam: 11/27/21 - Subjective Subjective: WAS ADMITTED FOR TREATMENT OF MULTIFOCAL PNEUMONIA, INFLUENZA A, DEHYDRATION, AND AMS. TODAY, HE IS ALERT AND ORIENTED, LYING IN BED ON MORNING ROUNDS. HE REPORTS SHORTNESS OF BREATH, COUGH, AND GENERALIZED WEAKNESS THIS MORNING. HE DOES ADMIT TO SLIGHT IMPROVEMENT IN SYMPTOMS SINCE ADMISSION. ON EXAMINATION, HEART IS REGULAR IN RATE AND RHYTHM. BILATERAL LUNGS ARE NOTED WITH DIMINISHED LUNG SOUNDS THROUGHOUT. ABDOMEN IS ROUND, SOFT, AND NON-TENDER WITH NORMAL BOWEL SOUNDS NOTED IN ALL QUADRANTS. HIS VITALS THIS MORNING ARE: 98.3-86-20-96%-150/91. LABS WERE OBTAINED. ABNORMAL LAB VALUES INCLUDE THE FOLLOWING: RBC 4.52, HGB 12.1, HCT 35.5, PLT COUNT 114, SODIUM 135, BUN 26, GLUCOSE 303, TOTAL PROTEIN 5.7, ALBUMIN 1.6. BLOOD CULTURES ARE PENDING. CHEST XRAY WAS OBTAINED AND REVEALED: Unchanged bilateral pneumonia. HE IS CURRENTLY RECEIVING: NORMAL SALINE AT 125ML/HR, LEVAQUIN 500MG IV DAILY, ZOSYN 3.375G IV TID, ALBUTEROL NEB TX, PULMICORT NEB TX, LOVENOX 30MG SC BID, SOLU- MEDROL 40MG IV Q8H, TAMIFLU 75MG PO BID, PEPCID 40MG PO HS, TRICOR 160MG PO DAILY, MEGACE 40MG PO BID, TOPROL XL 50MG PO DAILY, AND IMMUNE SUPPLEMENTS. WE WILL CONTINUE WITH CURRENT PLAN OF CARE TODAY AND ADD ALBUMIN 25% IV DAILY. OTHERWISE, WE WILL FOLLOW UP WITH AM LABS AND CHEST XRAY AND CONTINUE TO MONITOR. TIME SPENT ON CLINICAL ASSESSMENT, REVIEWING LABS AND IMAGING, DECISION MAKING, AND DOCUMENTATION GREATER THAN 45 MINUTES. - Past Medical Family Social History Past Med/Fam/Surg Hx: No changes since H&P Allergies: Allergies codeine Adverse Reaction (Verified 11/13/21 08:47) irregular heart rate - Review of Systems ROS: No change since H&P - Vital Signs and I&O's Vital Signs: Temperature 98.7 F Pulse Rate [Left Radial] 84 Pulse Rate 81 Respiratory Rate 20 Blood Pressure [Right Arm] 145/89 Blood Pressure 143/83 O2 Sat by Pulse Oximetry 97 Intake and Output: Intake & Output 11/25/21 11/26/21 11/27/21 11/28/21 11:59 11:59 11:59 11:59 Intake Total 843 / 843 4281 / 4281 900 / 900 Output Total 1100 / 1100 2300 / 2300 900 / 900 Balance -257 / -257 1980 0 / 0 - Physical Exam Oriented: Normal Eyes: Normal Ear: Normal Nose: Normal Throat: Normal Respiratory: Diminished Cardiovascular: Normal : Normal Auscultation: Bowel Sounds: Normal Tenderness: Normal Skin: Decreased Turgur Musculoskeletal: Back:Lumbar, Tender Psychiatric: Normal Mood Description: Calm Affect: Normal Speech Pattern: Clear, Appropriate - Laboratory and Diagnostics Result Diagrams: 11/27/21 04:20 11/27/21 04:20 Labs: 11/24/21 12:36 Blood Blood Culture - Preliminary 11/24/21 12:29 Blood Blood Culture - Preliminary Laboratory WBC 7.1 X10^3/uL (3.6-10.0) 11/27/21 04:20 RBC 4.52 X10^6/uL (4.7-6.0) L 11/27/21 04:20 Hgb 12.1 g/dL (13.5-18.0) L 11/27/21 04:20 Hct 35.5 % (42.0-54.0) L 11/27/21 04:20 MCV 78.5 fL (80.0-100.0) L 11/27/21 04:20 MCH 26.7 pg (27.0-34.0) L 11/27/21 04:20 MCHC 34.0 g/dL (33.0-35.0) 11/27/21 04:20 RDW 14.3 % (11.6-16.5) 11/27/21 04:20 Plt Count 114 X10^3/uL (150.0-450.0) L 11/27/21 04:20 Plt Count Comment Decreased (ADEQUATE) 11/26/21 04:50 MPV 8.8 fL (7.4-11.0) 11/27/21 04:20 Neut % (Auto) 85.8 % (42.0-75.0) H 11/27/21 04:20 Lymph % (Auto) 8.9 % (21.0-51.0) L 11/27/21 04:20 [place] % (Auto) 5.2 % (0.0-13.0) 11/27/21 04:20 Eos % (Auto) 0.0 % (0.9-2.9) L 11/27/21 04:20 Baso % (Auto) 0.1 % (0.2-1.0) L 11/27/21 04:20 Neut # (Auto) 6.1 x10^3/uL (2.2-4.8) H 11/27/21 04:20 Lymph # (Auto) 0.6 X10^3/uL (1.3-2.9) L 11/27/21 04:20 [place] # (Auto) 0.4 x10^3/uL (0.3-0.8) 11/27/21 04:20 Eos # (Auto) 0.0 x10^3/uL (0.0-0.2) 11/27/21 04:20 Baso # (Auto) 0.0 X10^3/uL (0.0-0.1) 11/27/21 04:20 Absolute Nucleated RBC 0.2 /100WBC 11/27/21 04:20 Total Counted 100 11/26/21 04:50 Neutrophils % (Manual) 86 % (39-76) H 11/26/21 04:50 Lymphocytes % (Manual) 14 % (13-43) 11/26/21 04:50 Monocytes % (Manual) 4 % (4-9) 11/25/21 04:25 Plt Morphology Comment Normal (NORMAL) 11/26/21 04:50 RBC Morphology Normal (NORMAL) 11/26/21 04:50 Sodium 135 mmol/L (136-145) L 11/27/21 04:20 Corrected Sodium 140 mmol/L (136-145) 11/27/21 04:20 Potassium 4.1 mmol/L (3.5-5.1) 11/27/21 04:20 Chloride 104 mmol/L (98-107) 11/27/21 04:20 Carbon Dioxide 24.1 mmol/L (21-32) 11/27/21 04:20 BUN 26 mg/dL (7-18) H 11/27/21 04:20 Creatinine 1.19 mg/dL (0.70-1.30) 11/27/21 04:20 Est GFR (MDRD) Af Amer > 60 (>60) 11/27/21 04:20 Est GFR (MDRD) Non-Af > 60 (>60) 11/27/21 04:20 Glucose 303 mg/dL (65-99) H 11/27/21 04:20 POC Glucose (mg/dL) 304 mg/dL (65-99) H 11/27/21 11:35 Lactic Acid 1.4 mmol/L (0.4-2.0) 11/25/21 04:25 Calcium 8.9 mg/dL (8.5-10.1) 11/27/21 04:20 Corrected Calcium 10.8 mg/dL (8.5-10.1) H 11/27/21 04:20 Magnesium 2.4 mg/dL (1.7-2.9) 11/25/21 04:25 Total Bilirubin 0.40 mg/dL (0.2-1.0) 11/27/21 04:20 AST 15 Units/L (15-37) 11/27/21 04:20 ALT 19 Units/L (12-78) 11/27/21 04:20 Alkaline Phosphatase 58 Units/L (46-116) 11/27/21 04:20 Creatine Kinase 101 Units/L (39-308) 11/25/21 00:26 CK-MB (CK-2) < 1.0 ng/mL (0-4.0) 11/25/21 00:26 CK/CKMB % Calc 1.0 % (<4) 11/25/21 00:26 Troponin I < 0.02 ng/mL (0-1.5) 11/25/21 00:26 B-Natriuretic Peptide 118 pg/mL (0-79) H 11/24/21 12:36 Total Protein 5.7 g/dL (6.4-8.2) L 11/27/21 04:20 Albumin 1.6 g/dL (3.4-5.0) L 11/27/21 04:20 Globulin 4.1 g/dL (2.5-4.5) 11/27/21 04:20 Albumin/Globulin Ratio 0.4 Ratio (1.1-2.1) L 11/27/21 04:20 Specimen Type Catherized urine 11/24/21 13:39 Urine Color Dark yellow (YELLOW) 11/24/21 13:39 Urine Appearance Slightly hazy (CLEAR) 11/24/21 13:39 Urine pH 5.0 (5.0 - 8.0) 11/24/21 13:39 Ur Specific Bath 1.020 (1.000-1.030) 11/24/21 13:39 Urine Protein 3+ (NEGATIVE) 11/24/21 13:39 Urine Glucose (UA) 4+ (NEGATIVE) 11/24/21 13:39 Urine Ketones 3+ (NEGATIVE) 11/24/21 13:39 Urine Occult Blood 4+ (NEGATIVE) 11/24/21 13:39 Urine Nitrite Negative (NEGATIVE) 11/24/21 13:39 Urine Bilirubin Negative (NEGATIVE) 11/24/21 13:39 Urine Urobilinogen Normal (NORMAL) 11/24/21 13:39 Ur Leukocyte Esterase Negative (NEGATIVE) 11/24/21 13:39 Urine RBC 5-10 /HPF (0-3) A 11/24/21 13:39 Urine WBC 0-2 /HPF (0-5) 11/24/21 13:39 Ur Squamous Epith Cells Few /HPF (NEGATIVE) 11/24/21 13:39 Amorphous Sediment 1+ /HPF (NEGATIVE) 11/24/21 13:39 Urine Bacteria Trace /HPF (NEGATIVE) 11/24/21 13:39 Coarse Granular Casts Moderate /HPF (NEGATIVE) 11/24/21 13:39 Other Casts Few /LPF (NEGATIVE) 11/24/21 13:39 Ur Culture Indicated? No/not indicated 11/24/21 13:39 Acetone, Semi-Quant Negative (NEGATIVE) 11/24/21 12:36 SARS-CoV-2 (PCR) Negative (NEGATIVE) 11/24/21 12:45 Influenza Type A (PCR) Positive (NEGATIVE) A 11/24/21 12:45 Influenza Type B (PCR) Negative (NEGATIVE) 11/24/21 12:45 RSV (PCR) Negative (NEGATIVE) 11/24/21 12:45 - Plan (1) Pneumonia Status: Acute Qualifiers: Pneumonia type: due to unspecified organism Laterality: bilateral Lung location: unspecified part of lung Qualified Code(s): J18.9 - Pneumonia, unspecified organism Plan: SUPPLEMENTAL OXYGEN, NORMAL SALINE AT 125ML/HR, LEVAQUIN 500MG IV DAILY, ZOSYN 3.375G IV TID, ALBUTEROL NEB TX, PULMICORT NEB TX, LOVENOX 30MG SC BID, SOLU-MEDROL 40MG IV Q8H, TAMIFLU 75MG PO BID, PEPCID 40MG PO HS, TRICOR 160MG PO DAILY, MEGACE 40MG PO BID, TOPROL XL 50MG PO DAILY, AND IMMUNE SUPPLEMENTS. (2) Influenza A Status: Acute (3) Acute dehydration Status: Acute (4) Altered mental state Status: Acute Qualifiers: Altered mental status type: transient alteration of awareness Qualified Code(s): R40.4 - Transient alteration of awareness (5) Acute hyperglycemia Status: Acute (6) Leukopenia Status: Acute Qualifiers: Leukopenia type: unspecified Qualified Code(s): D72.819 - Decreased white blood cell count, unspecified
[2021-11-27] MEDS: ALBUMIN HUMAN 25%- 100 ML 100 ML IV SCH (16:29)
[2021-11-27] MEDS: SNACK - Diabetic Appropriate PO SCH (21:50)
[2021-11-27] MEDS: PEPCID TAB 40 MG PO SCH (21:53)
[2021-11-28] MEDS: ASCORBIC ACID INJ MULTI-DOSE VIAL 1,500 MG in NS 100 ML IV 100 ML IV SCH ×5 (02:34→21:16)
[2021-11-28] MEDS: NovoLIN R (or HumuLIN R) SUBCUT PRN ×4 (03:37→22:00)
[2021-11-28] MEDS: NS 1,000 ML IV 1,000 ML IV SCH ×3 (04:17→21:17)
[2021-11-28 05:05] LABS: BASOPHILS % (AUTO) 0.1 % (0.2-1.0); HEMATOCRIT 34.1 % (42.0-54.0); HEMOGLOBIN 11.7 g/dL (13.5-18.0); LYMPHOCYTES # (AUTO) 0.6 X10^3/uL (1.3-2.9); LYMPHOCYTES % (AUTO) 11.8 % (21.0-51.0); MEAN CORPUSCULAR HEMOGLOBIN 26.9 pg (27.0-34.0); MEAN CORPUSCULAR HGB CONC 34.2 g/dL (33.0-35.0); MEAN CORPUSCULAR VOLUME 78.6 fL (80.0-100.0); MEAN PLATELET VOLUME 8.9 fL (7.4-11.0); MONOCYTES # (AUTO) 0.3 x10^3/uL (0.3-0.8); MONOCYTES % (AUTO) 6.5 % (0.0-13.0); NEUTROPHILS # (AUTO) 4.2 x10^3/uL (2.2-4.8); NEUTROPHILS % (AUTO) 81.6 % (42.0-75.0); PLATELET COUNT 127 X10^3/uL (150.0-450.0); RED BLOOD COUNT 4.34 X10^6/uL (4.7-6.0); RED CELL DISTRIBUTION WIDTH 14.3 % (11.6-16.5); WHITE BLOOD COUNT 5.2 X10^3/uL (3.6-10.0)
[2021-11-28 05:11] LABS: ALANINE AMINOTRANSFERASE 14 Units/L (12-78); ALBUMIN 1.8 g/dL (3.4-5.0); ALKALINE PHOSPHATASE 48 Units/L (46-116); ASPARTATE AMINO TRANSFERASE 11 Units/L (15-37); BLOOD UREA NITROGEN 22 mg/dL (7-18); CALCIUM 8.5 mg/dL (8.5-10.1); CARBON DIOXIDE 24.2 mmol/L (21-32); CHLORIDE 104 mmol/L (98-107); COR CA(FOR HYPOALB) 10.3 mg/dL (8.5-10.1); COR NA(FOR HYPERGLY) 139 mmol/L (136-145); CREATININE 1.05 mg/dL (0.70-1.30); SODIUM 135 mmol/L (136-145); TOTAL PROTEIN 5.2 g/dL (6.4-8.2); eGFR NON BLACK RACES > 60 (>60)
[2021-11-28] MEDS: ZOSYN VIAL 3.375 GRAMS 3.375 G in NS 100 ML IV + SPIKE MINIBAG* 100 ML IV SCH ×3 (06:00→21:17)
[2021-11-28] MEDS: SOLU-Medrol 40 MG VIAL IVP SCH ×3 (06:18→21:14)
--- NOTE | 2021-11-28 07:07 | RAD ---
HISTORYPneumonia, shortness of breathSTUDYChest AP [id number]/29/2021FINDINGSHypo inflation accentuates the heart size. It is likely within normal limits. No congestive heart failure is noted. Right upper, right lower, and left lower lobe infiltrates are again identified and are unchanged. Findings are most consistent with multifocal pneumonia. No pneumothorax or pleural effusion is identified. Bony thorax is unremarkable.IMPRESSIONNo significant change from the prior examinationElectronically signed by: KATHRYN TORRES (Nov 28, 2021 07:05:48)
[2021-11-28] MEDS ORDERED: TAMIFLU PO ONE (08:35)
[2021-11-28] MEDS: ALBUMIN HUMAN 25%- 100 ML 100 ML IV SCH (08:37)
[2021-11-28] MEDS: LOVENOX INJ 30 MG SYR SC SCH ×2 (08:39→21:56)
[2021-11-28] MEDS: ACTOS PO SCH (08:39)
[2021-11-28] MEDS: MEGACE PO SCH ×2 (08:40→21:15)
[2021-11-28] MEDS: TAMIFLU PO SCH ×2 (08:40→21:14)
[2021-11-28] MEDS: TOPROL XL PO SCH (08:41)
[2021-11-28] MEDS: TRICOR TAB 160 MG PO SCH (08:41)
[2021-11-28] MEDS: ZINC SULFATE PO SCH ×2 (08:41→21:16)
[2021-11-28] MEDS: VITAMIN D3 125 mcg (5,000 UNITS) PO SCH (08:41)
[2021-11-28] MEDS: PROVENTIL NEB TX 0.083% 2.5MG/ 3ML NEB SCH ×2 (08:45→20:41)
[2021-11-28] MEDS: PULMICORT NEB TX 0.5 MG NEB SCH ×2 (08:45→20:41)
[2021-11-28] MEDS: LEVAQUIN PREMIX IV 500 MG 500 MG/100 ML BAG IV SCH (10:15)
[2021-11-28] MEDS: SNACK - Diabetic Appropriate PO SCH (21:16)
[2021-11-28] MEDS: PEPCID TAB 40 MG PO SCH (21:18)
[2021-11-29] MEDS: ASCORBIC ACID INJ MULTI-DOSE VIAL 1,500 MG in NS 100 ML IV 100 ML IV SCH ×4 (03:59→21:30)
[2021-11-29] MEDS: NS 1,000 ML IV 1,000 ML IV SCH ×4 (05:13→22:24)
[2021-11-29 05:31] LABS: BASOPHILS % (AUTO) 0.2 % (0.2-1.0); HEMATOCRIT 37.2 % (42.0-54.0); HEMOGLOBIN 12.7 g/dL (13.5-18.0); LYMPHOCYTES # (AUTO) 0.7 X10^3/uL (1.3-2.9); LYMPHOCYTES % (AUTO) 14.5 % (21.0-51.0); MEAN CORPUSCULAR HGB CONC 34.2 g/dL (33.0-35.0); MEAN PLATELET VOLUME 8.9 fL (7.4-11.0); MONOCYTES # (AUTO) 0.2 x10^3/uL (0.3-0.8); MONOCYTES % (AUTO) 4.7 % (0.0-13.0); NEUTROPHILS # (AUTO) 4.2 x10^3/uL (2.2-4.8); NEUTROPHILS % (AUTO) 80.6 % (42.0-75.0); PLATELET COUNT 167 X10^3/uL (150.0-450.0); RED BLOOD COUNT 4.71 X10^6/uL (4.7-6.0); RED CELL DISTRIBUTION WIDTH 14.6 % (11.6-16.5); WHITE BLOOD COUNT 5.2 X10^3/uL (3.6-10.0)
[2021-11-29 05:37] LABS: ALANINE AMINOTRANSFERASE 15 Units/L (12-78); ALBUMIN 1.9 g/dL (3.4-5.0); ALKALINE PHOSPHATASE 53 Units/L (46-116); ASPARTATE AMINO TRANSFERASE 11 Units/L (15-37); BLOOD UREA NITROGEN 21 mg/dL (7-18); CALCIUM 8.6 mg/dL (8.5-10.1); CARBON DIOXIDE 26.3 mmol/L (21-32); CHLORIDE 102 mmol/L (98-107); COR CA(FOR HYPOALB) 10.3 mg/dL (8.5-10.1); COR NA(FOR HYPERGLY) 140 mmol/L (136-145); CREATININE 1.14 mg/dL (0.70-1.30); SODIUM 136 mmol/L (136-145); TOTAL PROTEIN 5.5 g/dL (6.4-8.2); eGFR NON BLACK RACES > 60 (>60)
[2021-11-29] MEDS: SOLU-Medrol 40 MG VIAL IVP SCH ×3 (05:57→21:39)
[2021-11-29] MEDS: ZOSYN VIAL 3.375 GRAMS 3.375 G in NS 100 ML IV + SPIKE MINIBAG* 100 ML IV SCH ×3 (05:57→22:34)
[2021-11-29] MEDS: NovoLIN R (or HumuLIN R) SUBCUT PRN ×4 (06:29→21:27)
--- NOTE | 2021-11-29 06:59 | RAD ---
PROCEDURE: Chest X-ray 1 View .HISTORY: Dyspnea and pneumonia.TECHNIQUE: AP view .COMPARISON: 11/28/2021.TECHNICAL QUALITY: Satisfactory .FINDINGS:Unremarkable cardio mediastinal silhouette.Normal central vascularity.Continued consolidation both mid lower lung servin with no pleural fluid or pneumothorax.IMPRESSION:Unchanged bilateral pneumonia.Electronically signed by: Pradeep Quinonez (Nov 29, 2021 06:58:03)
[2021-11-29] MEDS: PROVENTIL NEB TX 0.083% 2.5MG/ 3ML NEB SCH ×2 (08:55→20:04)
[2021-11-29] MEDS: PULMICORT NEB TX 0.5 MG NEB SCH ×2 (08:55→20:05)
[2021-11-29] MEDS: TRICOR TAB 160 MG PO SCH (09:30)
[2021-11-29] MEDS: LOVENOX INJ 30 MG SYR SC SCH ×2 (09:40→21:34)
[2021-11-29] MEDS: ZINC SULFATE PO SCH ×2 (09:42→21:32)
[2021-11-29] MEDS: TOPROL XL PO SCH (09:43)
[2021-11-29] MEDS: ACTOS PO SCH (09:43)
[2021-11-29] MEDS: MEGACE PO SCH ×2 (09:43→21:32)
[2021-11-29] MEDS: VITAMIN D3 125 mcg (5,000 UNITS) PO SCH (09:44)
[2021-11-29] MEDS: TAMIFLU PO SCH ×2 (09:44→21:32)
[2021-11-29] MEDS: LEVAQUIN PREMIX IV 500 MG 500 MG/100 ML BAG IV SCH (11:00)
[2021-11-29 11:58] LABS: ABG ALLEN TEST POS; ABG BASE EXCESS 2.2 mmol/L (-2.0-2.0); ABG HCO3 24.7 mmol/L (22-26)
[2021-11-29] MEDS: ALBUMIN HUMAN 25%- 100 ML 100 ML IV SCH (13:18)
[2021-11-29] MEDS: SNACK - Diabetic Appropriate PO SCH (21:30)
[2021-11-29] MEDS: PEPCID TAB 40 MG PO SCH (21:32)
[2021-11-30 05:21] LABS: BASOPHILS % (AUTO) 0.2 % (0.2-1.0); HEMATOCRIT 34.6 % (42.0-54.0); HEMOGLOBIN 11.8 g/dL (13.5-18.0); LYMPHOCYTES # (AUTO) 0.7 X10^3/uL (1.3-2.9); LYMPHOCYTES % (AUTO) 13.2 % (21.0-51.0); MEAN CORPUSCULAR HEMOGLOBIN 26.9 pg (27.0-34.0); MEAN CORPUSCULAR VOLUME 79.1 fL (80.0-100.0); MEAN PLATELET VOLUME 9.2 fL (7.4-11.0); MONOCYTES # (AUTO) 0.2 x10^3/uL (0.3-0.8); MONOCYTES % (AUTO) 4.6 % (0.0-13.0); NEUTROPHILS # (AUTO) 4.3 x10^3/uL (2.2-4.8); PLATELET COUNT 173 X10^3/uL (150.0-450.0); RED BLOOD COUNT 4.37 X10^6/uL (4.7-6.0); RED CELL DISTRIBUTION WIDTH 14.2 % (11.6-16.5); WHITE BLOOD COUNT 5.2 X10^3/uL (3.6-10.0)
[2021-11-30 05:30] LABS: ALANINE AMINOTRANSFERASE 12 Units/L (12-78); ALKALINE PHOSPHATASE 44 Units/L (46-116); ASPARTATE AMINO TRANSFERASE 9 Units/L (15-37); BLOOD UREA NITROGEN 19 mg/dL (7-18); CALCIUM 8.3 mg/dL (8.5-10.1); CARBON DIOXIDE 26.5 mmol/L (21-32); CHLORIDE 102 mmol/L (98-107); COR CA(FOR HYPOALB) 9.9 mg/dL (8.5-10.1); COR NA(FOR HYPERGLY) 135 mmol/L (136-145); CREATININE 0.98 mg/dL (0.70-1.30); SODIUM 131 mmol/L (136-145); TOTAL PROTEIN 4.9 g/dL (6.4-8.2); eGFR NON BLACK RACES > 60 (>60)
[2021-11-30] MEDS: NS 1,000 ML IV 1,000 ML IV SCH ×3 (06:06→21:36)
[2021-11-30] MEDS: ASCORBIC ACID INJ MULTI-DOSE VIAL 1,500 MG in NS 100 ML IV 100 ML IV SCH ×4 (06:17→21:54)
[2021-11-30] MEDS: SOLU-Medrol 40 MG VIAL IVP SCH ×3 (06:18→21:59)
[2021-11-30] MEDS: NovoLIN R (or HumuLIN R) SUBCUT PRN ×4 (06:21→21:39)
[2021-11-30] MEDS: ZOSYN VIAL 3.375 GRAMS 3.375 G in NS 100 ML IV + SPIKE MINIBAG* 100 ML IV SCH ×3 (06:42→22:48)
--- NOTE | 2021-11-30 07:03 | CT ---
HISTORYPNEUMONIA diabetes. Hypertension.STUDYCHEST WITH CONCOMPARISONChest radiograph 11/29/2021TECHNIQUEMultiple CT axial images of the chest were obtained without IV contrast. Coronal and sagittal images were reconstructed. Dose reduction techniques included Automated Exposure Control (AEC) and adjustment of mA and kV.FINDINGSCardiomegaly is present.The pulmonary artery and aorta have a normal caliber. Mediastinal lymphadenopathy is present, probably reactive. I believe there is also bilateral hilar lymphadenopathy, probably reactive.The thyroid has a normal size and configuration. No axillary mass or significant axillary lymphadenopathy is identified.Focal areas of opacity are noted in the left and right lung consistent with pneumonia. Findings are larger on the right side involving all 3 lobes.Small bilateral pleural effusions are present, right side larger than left. No endobronchial occlusion.Limited views of the upper abdomen show no significant abnormality. Large hiatal hernia measures about 8 cm.Degenerative changes are present in the spine.The patient has generalized edema, seen is increased density in the subcutaneous fat of the upper abdomen. Also increased density in the intra-abdominal fat.IMPRESSION1. Bronchopneumonia with reactive lymphadenopathy2. Bilateral effusions with generalized edema3. Cardiomegaly4. Hiatal herniaElectronically signed by: Loc Engle (Nov 30, 2021 07:02:06)
[2021-11-30] MEDS: ACTOS PO SCH (08:53)
[2021-11-30] MEDS: LEVAQUIN PREMIX IV 500 MG 500 MG/100 ML BAG IV SCH (08:53)
[2021-11-30] MEDS: TOPROL XL PO SCH (08:54)
[2021-11-30] MEDS: MEGACE PO SCH ×2 (08:54→21:56)
[2021-11-30] MEDS: TAMIFLU PO SCH ×2 (08:54→21:56)
[2021-11-30] MEDS: TRICOR TAB 160 MG PO SCH (08:55)
[2021-11-30] MEDS: LOVENOX INJ 30 MG SYR SC SCH ×2 (08:56→21:38)
[2021-11-30] MEDS: ZINC SULFATE PO SCH ×2 (08:56→21:56)
[2021-11-30] MEDS: VITAMIN D3 125 mcg (5,000 UNITS) PO SCH (08:56)
[2021-11-30] MEDS: PULMICORT NEB TX 0.5 MG NEB SCH ×2 (09:36→20:27)
[2021-11-30] MEDS: PROVENTIL NEB TX 0.083% 2.5MG/ 3ML NEB SCH ×2 (09:36→20:27)
[2021-11-30] MEDS ORDERED: LASIX IVP ONE (10:37)
[2021-11-30] MEDS ORDERED: MICRO K EXTEN CAP 10 MEQ PO SCH (11:00)
[2021-11-30] MEDS: SNACK - Diabetic Appropriate PO SCH (20:35)
[2021-11-30] MEDS: PEPCID TAB 40 MG PO SCH (21:56)
[2021-12-01] MEDS: ASCORBIC ACID INJ MULTI-DOSE VIAL 1,500 MG in NS 100 ML IV 100 ML IV SCH ×2 (02:40→08:59)
[2021-12-01 05:57] LABS: HEMATOCRIT 38.8 % (42.0-54.0); HEMOGLOBIN 12.9 g/dL (13.5-18.0); LYMPHOCYTES # (AUTO) 0.7 X10^3/uL (1.3-2.9); LYMPHOCYTES % (AUTO) 13.9 % (21.0-51.0); MEAN CORPUSCULAR HEMOGLOBIN 26.5 pg (27.0-34.0); MEAN CORPUSCULAR HGB CONC 33.4 g/dL (33.0-35.0); MEAN CORPUSCULAR VOLUME 79.4 fL (80.0-100.0); MEAN PLATELET VOLUME 9.4 fL (7.4-11.0); MONOCYTES # (AUTO) 0.2 x10^3/uL (0.3-0.8); MONOCYTES % (AUTO) 4.1 % (0.0-13.0); NEUTROPHILS # (AUTO) 3.9 x10^3/uL (2.2-4.8); PLATELET COUNT 210 X10^3/uL (150.0-450.0); RED BLOOD COUNT 4.88 X10^6/uL (4.7-6.0); RED CELL DISTRIBUTION WIDTH 14.2 % (11.6-16.5); WHITE BLOOD COUNT 4.8 X10^3/uL (3.6-10.0)
[2021-12-01] MEDS: ZOSYN VIAL 3.375 GRAMS 3.375 G in NS 100 ML IV + SPIKE MINIBAG* 100 ML IV SCH ×2 (05:58→14:35)
[2021-12-01] MEDS: NS 1,000 ML IV 1,000 ML IV SCH ×2 (05:58→14:34)
[2021-12-01] MEDS: SOLU-Medrol 40 MG VIAL IVP SCH ×2 (05:58→14:35)
[2021-12-01 06:18] LABS: ALANINE AMINOTRANSFERASE 16 Units/L (12-78); ALBUMIN 2.2 g/dL (3.4-5.0); ALKALINE PHOSPHATASE 49 Units/L (46-116); ASPARTATE AMINO TRANSFERASE 13 Units/L (15-37); BLOOD UREA NITROGEN 22 mg/dL (7-18); CALCIUM 8.5 mg/dL (8.5-10.1); CARBON DIOXIDE 27.6 mmol/L (21-32); CHLORIDE 102 mmol/L (98-107); COR CA(FOR HYPOALB) 9.9 mg/dL (8.5-10.1); COR NA(FOR HYPERGLY) 138 mmol/L (136-145); CREATININE 1.11 mg/dL (0.70-1.30); SODIUM 134 mmol/L (136-145); TOTAL PROTEIN 4.9 g/dL (6.4-8.2); eGFR NON BLACK RACES > 60 (>60)
[2021-12-01] MEDS: NovoLIN R (or HumuLIN R) SUBCUT PRN ×2 (06:21→12:47)
[2021-12-01] MEDS: PROVENTIL NEB TX 0.083% 2.5MG/ 3ML NEB SCH (08:31)
[2021-12-01] MEDS: PULMICORT NEB TX 0.5 MG NEB SCH (08:31)
[2021-12-01] MEDS: LEVAQUIN PREMIX IV 500 MG 500 MG/100 ML BAG IV SCH (08:56)
[2021-12-01] MEDS: ZINC SULFATE PO SCH (08:57)
[2021-12-01] MEDS: TOPROL XL PO SCH (08:57)
[2021-12-01] MEDS: ACTOS PO SCH (08:58)
[2021-12-01] MEDS: TRICOR TAB 160 MG PO SCH (08:58)
[2021-12-01] MEDS: MEGACE PO SCH (08:58)
[2021-12-01] MEDS: TAMIFLU PO SCH (08:58)
[2021-12-01] MEDS: VITAMIN D3 125 mcg (5,000 UNITS) PO SCH (09:00)
[2021-12-01] MEDS: LOVENOX INJ 30 MG SYR SC SCH (09:01)
[2021-12-01 12:16] VITALS: BP 122/72
--- NOTE | 2021-12-01 13:17 | RAD ---
HISTORYPNEUMONIASTUDYCHEST, 1 [id number]/31/2021.TECHNIQUEAP view of the chestFINDINGSCardiac and mediastinal contours are within normal limits. Mild improvement in bilateral scattered airspace opacities compared to prior radiograph. Blunted left costophrenic sulcus. No pneumothorax. Soft tissue attenuation limits evaluation.IMPRESSIONMild improvement in bilateral pneumonia compared to prior radiograph. Suspect small left pleural effusion.Electronically signed by: Bg Eugene (Dec 01, 2021 13:14:05)
== END 2021-12-01 14:55 | disposition home or self-care (01) | DRG 194 ==
LOC: ER 11:49 → MED/SURG 11:49
PROVIDERS: ADMIT Internal Medicine; ATTEND Obstetrics & Gynecology Obstetrics
DX: J90 Pleural effusion, not elsewhere classified; E11.65 Type 2 diabetes mellitus with hyperglycemia; I10 Essential (primary) hypertension; J10.1 Influenza due to other identified influenza virus with other respiratory manifestations; J18.8 Other pneumonia, unspecified organism; E86.0 Dehydration; D72.819 Decreased white blood cell count, unspecified; R94.31 Abnormal electrocardiogram [ECG] [EKG]; R26.89 Other abnormalities of gait and mobility; K21.9 Gastro-esophageal reflux disease without esophagitis; R40.4 Transient alteration of awareness; Z20.822 Contact with and (suspected) exposure to COVID-19; I25.10 Atherosclerotic heart disease of native coronary artery without angina pectoris; R06.02 Shortness of breath